=== PATIENT | female | born 1990 | race African-American/Black ===

== ENCOUNTER 2016-03-20 14:09 | Emergency (ER) | payer MEDICAID ==
[2016-03-20 14:15] VITALS: BP 136/84
--- NOTE | 2016-03-20 14:20 | ER Document Report ---
ED Medical Screen (RME) - General Stated Complaint: PASSING OUT Time seen by provider: 14:17 Mode of Arrival: Wheelchair Information source: Patient Notes: 25-year-old female who spontaneously passed out in front of her mother in the kitchen on the tile floor. She says today is Tuesday and that the last thing she remembers is coming in from work yesterday which she says is . She denies . She does not remember when her last period was no history of seizures. She is slow to respond to questions. She is complaining of a headache. TRAVEL OUTSIDE OF THE [place] IN LAST 30 DAYS: No - Related Data Allergies/Adverse Reactions: No Known Allergies Allergy (Verified 01/19/16 11:46) Past Medical History - Social History Family history: Reviewed & Not Pertinent Past Surgical History: Reports: Hx Section - Immunizations Immunizations up to date: Yes Hx Diphtheria, Pertussis, Tetanus Vaccination: Yes Physical Exam - Vital signs Vitals: Temp Pulse Resp BP Pulse Ox 98.3 F 94 16 136/84 H 99 03/20/16 14:14 03/20/16 14:14 03/20/16 14:14 03/20/16 14:14 03/20/16 14:14 Course - Vital Signs Vital signs: Temp Pulse Resp BP Pulse Ox 98.3 F 94 16 136/84 H 99 03/20/16 14:14 03/20/16 14:14 03/20/16 14:14 03/20/16 14:14 03/20/16 14:14
[2016-03-20 14:42] LABS: ABSOLUTE BASOPHILS # (AUTO) 0.1 10^3/uL (0.0-0.2); ABSOLUTE EOSINOPHILS # (AUTO) 0.1 10^3/uL (0.0-0.6); ABSOLUTE LYMPHOCYTES (AUTO) 4.4 10^3/uL (0.5-4.7); ABSOLUTE MONOCYTES (AUTO) 0.7 10^3/uL (0.1-1.4); ABSOLUTE NEUT (AUTO) 4.7 10^3/uL (1.7-8.2); BASOPHILS % (AUTO) 0.5 % (0-2); EOSINOPHILS % (AUTO) 1.2 % (0-6); HEMATOCRIT 40.6 % (36.0-47.0); HEMOGLOBIN 12.7 g/dL (12.0-15.5); HGB HCT DIFFERENCE -2.5; LYMPHOCYTES % (AUTO) 44.4 % (13-45); MEAN CORPUSCULAR HEMOGLOBIN 25.2 pg (27.0-33.4); MEAN CORPUSCULAR HGB CONC 31.3 g/dL (32.0-36.0); MEAN CORPUSCULAR VOLUME 80 fl (80-97); MONOCYTES % (AUTO) 6.6 % (3-13); RED BLOOD COUNT 5.06 10^6/uL (3.72-5.28); RED CELL DISTRIBUTION WIDTH 14.2 % (11.5-14.0); SEGMENTED NEUTROPHILS % (AUTO) 47.3 % (42-78)
[2016-03-20 15:08] LABS: ALANINE AMINOTRANSFERASE 32 U/L (9-52); ALBUMIN 4.1 g/dL (3.5-5.0); ALKALINE PHOSPHATASE 58 U/L (38-126); ANION GAP 11 (5-19); ASPARTATE AMINO TRANSFERASE 23 U/L (14-36); BILIRUBIN,TOTAL 0.4 mg/dL (0.2-1.3); BLOOD UREA NITROGEN 8 mg/dL (7-20); CALCIUM 9.7 mg/dL (8.4-10.2); CARBON DIOXIDE 27 mmol/L (22-30); CHLORIDE 103 mmol/L (98-107); CREATININE RESULT 0.61 mg/dL (0.52-1.25); GLUCOSE 86 mg/dL (75-110); POTASSIUM 4.2 mmol/L (3.6-5.0); SODIUM 141.1 mmol/L (137-145); TOTAL PROTEIN 7.1 g/dL (6.3-8.2)
[2016-03-20 15:19] LABS: APPEARANCE,URINE SLIGHTLY-CLOUDY; BILIRUBIN,URINE NEGATIVE (NEGATIVE); GLUCOSE, URINE NEGATIVE (NEGATIVE); KETONES,URINE NEGATIVE (NEGATIVE); LEUKOCYTE ESTERASE,URINE NEGATIVE (NEGATIVE); NITRITE,URINE NEGATIVE (NEGATIVE); PROTEIN,URINE NEGATIVE (NEGATIVE); URINE SPECIFIC GRAVITY 1.015; UROBILINOGEN,URINE NEGATIVE mg/dL (<2.0)
[2016-03-20 15:31] LABS: URINE BARBITURATES SCREEN NEGATIVE; URINE METHADONE SCREEN NEGATIVE; URINE PHENCYCLIDINE SCREEN NEGATIVE
--- NOTE | 2016-03-20 15:41 | ER Document Report ---
ED Syncope and Near Syncope - General Chief Complaint: Syncope Stated Complaint: PASSING OUT Time Seen by Provider: 03/20/16 14:16 Mode of Arrival: Wheelchair Information source: Patient, Relative TRAVEL OUTSIDE OF THE [place] IN LAST 30 DAYS: No - HPI Patient complains to provider of: Fainting Episode witnessed (by whom): Yes - mother and her children Single episoded occurred: 2:30 this afternoon was at the sink doing dishes when she passed out fallin Symptoms prior to episode: Headache, Other - Confusion and memory loss Position/Activity at time of episode: Standing Quality of pain: Other - Headache Context: Lost consciousness. denies: Lost pulse, Low blood sugar, , Seizure activity observed Injury location: Head Current symptoms: Headache, Lightheaded, Other - Confusion lost some memory D-stick result: 86 Similar symptoms previously: No Recently seen / treated by doctor: No - Related Data Allergies/Adverse Reactions: No Known Allergies Allergy (Verified 01/19/16 11:46) Past Medical History - General Information source: Patient - Social History Smoking Status: Never Smoker Chew tobacco use (# tins/day): No Frequency of alcohol use: None Drug Abuse: None Lives with: Family Family History: Reviewed & Not Pertinent Patient has suicidal ideation: No Patient has homicidal ideation: No - Past Medical History Cardiac Medical History: Reports: None Pulmonary Medical History: Reports: None EENT Medical History: Reports: None Neurological Medical History: Reports: None Endocrine Medical History: Reports: None Renal/ Medical History: Reports: None Malignancy Medical History: Reports: None GI Medical History: Reports: None Musculoskeltal Medical History: Reports None Skin Medical History: Reports None Psychiatric Medical History: Reports: None Traumatic Medical History: Reports: None Infectious Medical History: Reports: None Past Surgical History: Reports: Hx Section - Immunizations Immunizations up to date: Yes Hx Diphtheria, Pertussis, Tetanus Vaccination: Yes Review of Systems - Review of Systems Constitutional: No symptoms reported EENT: No symptoms reported Cardiovascular: Syncope Respiratory: No symptoms reported Gastrointestinal: No symptoms reported Genitourinary: No symptoms reported Female Genitourinary: No symptoms reported Musculoskeletal: No symptoms reported Skin: No symptoms reported Hematologic/Lymphatic: No symptoms reported Neurological/Psychological: Confusion, Headaches, Other - Loss of memory -: Yes All other systems reviewed and negative Physical Exam - Vital signs Vitals: Temp Pulse Resp BP Pulse Ox 98.3 F 94 16 136/84 H 99 03/20/16 14:14 03/20/16 14:14 03/20/16 14:14 03/20/16 14:14 03/20/16 14:14 Interpretation: Normal - General General appearance: Appears well, Alert - HEENT Head: Normocephalic, Atraumatic Eyes: Normal Pupils: PERRL Visual gillespie normal: Yes Ears: Normal External canal: Normal Tympanic membrane: Normal Sinus: Normal Nasal: Normal Mouth/Lips: Normal Mucous membranes: Normal Pharynx: Normal Neck: Normal - Respiratory Respiratory status: No respiratory distress Chest status: Nontender Breath sounds: Normal Chest palpation: Normal - Cardiovascular Rhythm: Regular Heart sounds: Normal auscultation Murmur: No - Abdominal Inspection: Normal Distension: No distension Bowel sounds: Normal Tenderness: Nontender Organomegaly: No organomegaly - Back Back: Normal, Nontender - Extremities General upper extremity: Normal inspection, Nontender, Normal color, Normal ROM , Normal temperature General lower extremity: Normal inspection, Nontender, Normal color, Normal ROM , Normal temperature, Normal weight bearing. 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 Hayden with labs and CT results. Dr. Hayden went in and examined the patient himself. He states she can go home with diagnosis of concussion and give her head injury precautions. - Vital Signs Vital signs: Temp Pulse Resp BP Pulse Ox 98.3 F 94 16 136/84 H 99 03/20/16 14:14 03/20/16 14:14 03/20/16 14:14 03/20/16 14:14 03/20/16 14:14 - Laboratory Result Diagrams: 03/20/16 14:25 03/20/16 14:25 Laboratory results interpreted by me: 03/20/16 03/20/16 14:25 15:00 MCH 25.2 L MCHC 31.3 L RDW 14.2 H Urine Blood MODERATE H - Diagnostic Test Radiology reviewed: Image reviewed, Reports reviewed Discharge - Discharge Clinical Impression: Concussion Qualifiers: Encounter type: initial encounter Loss of consciousness presence/duration: with LOC of 30 min or less Qualified Code(s): S06.0X1A - Concussion with loss of consciousness of 30 minutes or less, initial encounter Condition: Stable Disposition: HOME, SELF-CARE Instructions: Family Physicians / Practices Additional Instructions: Concussion You have suffered a concussion -- a temporary loss of certain brain functions due to a mild brain injury. The recovery is usually rapid and complete. The temporary problems occurring with a concussion can include loss of consciousness, dizziness, nausea, vomiting, and confusion. Repeat concussions can cause brain damage. In the future, avoid activities that will cause a blow to your head. Wear a helmet for sports such as snowboarding, biking, or skating. It's important that someone be with you for the first 24 hours. During this time, do not exercise or drive a vehicle. Do not take any pain medication stronger than acetaminophen unless prescribed by the physician. Any significant changes should be reported immediately to the physician. Signs of a problem may include: (1) Mental confusion (2) Incoordination or staggering (3) Repeated or forceful vomiting (4) Clear or bloody drainage from ear, mouth, or nose (5) Severe headache, not relieved by acetaminophen or prescribed pain medication (6) Failure to improve in 24 hours HEADACHE: The physician does not feel that the headache you are experiencing has a serious underlying cause. Most headaches are due to emotional stress, with resultant muscle tension (tension headache). Occasionally, headaches are secondary to changes in the blood vessels of the scalp (vascular headache and migraine headache). Sometimes, a headache is the first symptom of another developing illness, such as a viral infection. You have no evidence of stroke, bleeding, meningitis, or other serious cause of your headache. The treatment of headaches varies with the severity and cause of the pain. Not all headaches need pain shots. In fact, there is evidence that using narcotics for headaches may make them worse in the long run. The physician will determine the therapy that's in your best interest. If you develop a fever, if the headache is different from any you've previously experienced, or if the headache progressively worsens, then call your physician at once or go to the emergency room. Head Injury Precautions At this point, there is no evidence that your head injury is serious. Observation is necessary, however. Take only clear liquids for the first few hours, unless told otherwise by the doctor. If no pain medication was prescribed, you may take acetaminophen according to the directions on the bottle. Do not take any medication that may alter your level of alertness (unless you've discussed it with the doctor first) . Limit activity for the first 24 hours. Bed rest is best. During the first 24 hours, check to see approximately every two to three hours that the patient is easily arousable, responds normally, and can perform common tasks such as walking without difficulty. Contact your doctor or go to the hospital if any of the following things occur: Persistent vomiting, difficulty in arousing the patient, worsening or continued headache, or failure to improve as expected. Head injuries can cause symptoms that persist for a few days or even a few weeks. FOLLOW-UP CARE: If you have been referred to a physician for follow-up care, call the physician s office for an appointment as you were instructed or within the next two days. If you experience worsening or a significant change in your symptoms, notify the physician immediately or return to the Emergency Department at any time for re-evaluation. Forms: Elevated Blood Pressure
== END 2016-03-20 15:56 | disposition home or self-care (01) ==
LOC: ER 14:09
DX: S06.0X1A Concussion with loss of consciousness of 30 minutes or less, initial encounter (principal); R55 Syncope and collapse; R51 Headache; W18.30XA Fall on same level, unspecified, initial encounter; Y93.G1 Activity, food preparation and clean up; Y92.000 Kitchen of unspecified non-institutional (private) residence as the place of occurrence of the external cause
CPT/HCPCS: 36415; 70450; 80053; 80307; 81001; 84703; 85025; 99284

== ENCOUNTER 2016-09-06 10:30 | Emergency (ER) | payer MEDICAID ==
[2016-09-06 10:46] VITALS: BP 124/74
[2016-09-06] MEDS ORDERED: METOCLOPRAMIDE HCL ORAL SOLN 10 MG/10 ML UDCUP PO ONE (11:11)
[2016-09-06] MEDS ORDERED: MAG HYDROX/AL HYDROX/SIMETH SUSP 30 ML UDCUP PO ONE (11:11)
[2016-09-06] MEDS ORDERED: LIDOCAINE 2% VISCOUS SOLN 20 ML UDCUP PO ONE (11:11)
--- NOTE | 2016-09-06 11:17 | ER Document Report ---
ED General - General Chief Complaint: Chest Pain Stated Complaint: CHEST PAIN Time Seen by Provider: 09/06/16 10:45 Mode of Arrival: Ambulatory Information source: Patient Notes: 25-year-old female presents with complaints of gastric reflux chest pain when she swallows. pt denies any fevers or chills, admits ot burning sensation in the midsternal region and epigastric region for 4 day duration TRAVEL OUTSIDE OF THE [place] IN LAST 30 DAYS: No - HPI Onset: Last week Onset/Duration: Persistent Quality of pain: Burning Severity: Mild Pain Level: 1 Associated symptoms: Chest pain, Nausea, Vomiting Exacerbated by: Denies Relieved by: Denies Similar symptoms previously: Yes Recently seen / treated by doctor: No - Related Data Allergies/Adverse Reactions: No Known Allergies Allergy (Verified 09/06/16 10:36) Past Medical History - Social History Smoking Status: Current Every Day Smoker Cigarette use (# per day): Yes Chew tobacco use (# tins/day): No Smoking Education Provided: No Frequency of alcohol use: None Drug Abuse: None Family History: Reviewed & Not Pertinent Patient has suicidal ideation: No Patient has homicidal ideation: No Renal/ Medical History: Denies: Hx Peritoneal Dialysis Past Surgical History: Reports: Hx Section - 2 - Immunizations Immunizations up to date: Yes Hx Diphtheria, Pertussis, Tetanus Vaccination: Yes Review of Systems - Review of Systems Notes: REVIEW OF SYSTEMS: CONSTITUTIONAL : Denies fever, chills, or sweats. Denies recent illness. EENT: Denies eye, ear, throat, or mouth pain or symptoms. Denies nasal or sinus congestion or discharge. Denies throat, tongue, or mouth swelling or difficulty swallowing. CARDIOVASCULAR: Denies chest pain. Denies palpitations or racing or irregular heart beat. Denies ankle edema. RESPIRATORY: Denies cough, cold, or chest congestion. Denies shortness of breath, difficulty breathing, or wheezing. GASTROINTESTINAL: Heartburn nausea vomiting GENITOURINARY: Denies difficulty urinating, painful urination, burning, frequency, blood in urine, or discharge. FEMALE GENITOURINARY: Denies vaginal bleeding, heavy or abnormal periods, irregular periods. Denies vaginal discharge or odor. MUSCULOSKELETAL: Denies back or neck pain or stiffness. Denies joint pain or swelling. SKIN: Denies rash, lesions or sores. HEMATOLOGIC : Denies easy bruising or bleeding. LYMPHATIC: Denies swollen, enlarged glands. NEUROLOGICAL: Denies confusion or altered mental status. Denies passing out or loss of consciousness. Denies dizziness or lightheadedness. Denies headache. Denies weakness or paralysis or loss of use of either side. Denies problems with gait or speech. Denies sensory loss, numbness, or tingling. Denies seizures. PSYCHIATRIC: Denies anxiety or stress. Denies depression, suicidal ideation, or homicidal ideation. ALL OTHER SYSTEMS REVIEWED AND NEGATIVE. PHYSICAL EXAMINATION: GENERAL: Well-appearing, well-nourished and in no acute distress. HEAD: Atraumatic, normocephalic. EYES: Pupils equal round and reactive to light, extraocular movements intact, conjunctiva are normal. ENT: Nares patent, oropharynx clear without exudates. Moist mucous membranes. NECK: Normal range of motion, supple without lymphadenopathy LUNGS: Breath sounds clear to auscultation bilaterally and equal. No wheezes rales or rhonchi. HEART: Regular rate and rhythm without murmurs ABDOMEN: Soft, and epigastric region on palpation Female : deferred Musculoskeletal: Normal range of motion, no pitting or edema. No cyanosis. NEUROLOGICAL: Cranial nerves grossly intact. Normal speech, normal gait. Normal sensory, motor exams PSYCH: Normal mood, normal affect. SKIN: Warm, Dry, normal turgor, no rashes or lesions noted. Dictation was performed using [employer] voice recognition software Physical Exam - Vital signs Vitals: Temp Pulse Resp BP Pulse Ox 98.2 F 72 18 124/74 100 09/06/16 10:45 09/06/16 10:45 09/06/16 10:45 09/06/16 10:45 09/06/16 10:45 Course - Re-evaluation Re-evalutation: 09/06/16 11:14 Physical examination notes tenderness in the epigastric region, patient denies any fevers or chills, therefore I do not expect any-issues secondary to cardiac or intra-abdominal Patient given GI cocktail with improvement of symptoms, will be discharged home with PPI and follow-up with her primary care physician After performing a Medical Screening Examination, I estimate there is LOW risk for ACUTE APPENDICITIS, BOWEL OBSTRUCTION, ACUTE CHOLECYSTITIS, PERFORATED DIVERTICULITIS, INCARCERATED HERNIA, PANCREATITIS, PELVIC INFLAMMATORY DISEASE, PERFORATED ULCER, ECTOPIC , or TUBO-OVARIAN ABSCESS, thus I consider the discharge disposition reasonable. Also, there is no evidence or peritonitis , sepsis, or toxicity. I have reevaluated this patient multiple times and no significant life threatening changes are noted. The patient and I have discussed the diagnosis and risks, and we agree with discharging home with close follow-up with the understanding that symptoms and presentations can change. We also discussed returning to the Emergency Department immediately if new or worsening symptoms occur. We have discussed the symptoms which are most concerning (e.g., bloody stool, fever, changing or worsening pain, vomiting) that necessitate immediate return. - Vital Signs Vital signs: Temp Pulse Resp BP Pulse Ox 98.2 F 72 18 124/74 100 09/06/16 10:45 09/06/16 10:45 09/06/16 10:45 09/06/16 10:45 09/06/16 10:45 - EKG Interpretation by Me EKG shows normal: Sinus rhythm, [place], Intervals, QRS Complexes Discharge - Discharge Clinical Impression: Epigastric pain GERD (gastroesophageal reflux disease) Qualifiers: Esophagitis presence: with esophagitis Qualified Code(s): K21.0 - Gastro- esophageal reflux disease with esophagitis Condition: Stable Disposition: HOME, SELF-CARE Instructions: Abdominal Pain ([facility]) Additional Instructions: Follow up with your physician tomorrow for further care or return to the ED IMMEDIATELY if symptoms worsen or new concerns occur. If you cannot afford to follow up with your primary care physician a list of low cost clinics have been provided at the end of your discharge papers as well. Prescriptions: Famotidine [Pepcid 20 mg Tablet] 20 mg PO DAILY #30 tablet
--- NOTE | 2016-09-06 12:55 | EKG REPORT ---
SEVERITY:- NORMAL ECG - SINUS RHYTHM : Confirmed by: Eliceo De Santiago MD 06-Sep-2016 12:55:09
== END 2016-09-06 11:37 | disposition home or self-care (01) ==
LOC: ER 10:30
DX: K21.0 Gastro-esophageal reflux disease with esophagitis (principal); R10.13 Epigastric pain; R07.9 Chest pain, unspecified; R11.2 Nausea with vomiting, unspecified; F17.210 Nicotine dependence, cigarettes, uncomplicated
CPT/HCPCS: 93005; 99284; 93010; J3490

== ENCOUNTER 2017-03-09 08:34 | Emergency (ER) | payer SELFPAY ==
[2017-03-09 08:39] VITALS: BP 120/75
--- NOTE | 2017-03-09 08:49 | ER Document Report ---
ED Neck/Back Problem - General Chief Complaint: Neck Pain >24hrs old Stated Complaint: NECK PAIN Time Seen by Provider: 03/09/17 08:47 Notes: The patient is a 26-year-old female who presents with 3 days of right-sided neck pain to the back of her head that is worse with movement. She tried Motrin yesterday without much relief her symptoms. She denies numbness, tingling, headache, fevers, rash, injury or blurry vision. TRAVEL OUTSIDE OF THE [place] IN LAST 30 DAYS: No - Related Data Allergies/Adverse Reactions: No Known Allergies Allergy (Verified 03/09/17 08:34) Past Medical History - General Information source: Patient - Social History Smoking Status: Unknown if Ever Smoked Family History: Reviewed & Not Pertinent Renal/ Medical History: Denies: Hx Peritoneal Dialysis Past Surgical History: Reports: Hx Section - 2 - Immunizations Immunizations up to date: Yes Hx Diphtheria, Pertussis, Tetanus Vaccination: Yes Review of Systems - Review of Systems Notes: REVIEW OF SYSTEMS: CONSTITUTIONAL: -fevers, -chills EENT: -eye pain, -difficulty swallowing, -nasal congestion CARDIOVASCULAR: -chest pain, -syncope. RESPIRATORY: -cough, -SOB GASTROINTESTINAL: -abdominal pain, -nausea, -vomiting, -diarrhea GENITOURINARY: -dysuria, -hematuria MUSCULOSKELETAL: -back pain, +neck pain SKIN: -rash or skin lesions. HEMATOLOGIC: -easy bruising or bleeding. LYMPHATIC: -swollen, enlarged glands. NEUROLOGICAL: -altered mental status or loss of consciousness, -headache, - neurologic symptoms PSYCHIATRIC: -anxiety, -depression. ALL OTHER SYSTEMS REVIEWED AND NEGATIVE. Physical Exam - Vital signs Vitals: Temp Pulse Resp BP Pulse Ox 98.5 F 89 16 120/75 100 03/09/17 08:38 03/09/17 08:38 03/09/17 08:38 03/09/17 08:38 03/09/17 08:38 - Notes Notes: PHYSICAL EXAMINATION: GENERAL: Well-appearing, well-nourished and in no acute distress. HEAD: Atraumatic, normocephalic. EYES: Pupils equal round and reactive to light, extraocular movements intact, sclera anicteric, conjunctiva are normal. ENT: nares patent, oropharynx clear without exudates. Moist mucous membranes. NECK: Tenderness over right sternocleidomastoid. No midline tenderness. LUNGS: Breath sounds clear to auscultation bilaterally and equal. No wheezes rales or rhonchi. HEART: Regular rate and rhythm without murmurs ABDOMEN: Soft, nontender, normoactive bowel sounds. No guarding, no rebound. No masses appreciated. EXTREMITIES: Normal range of motion, no pitting or edema. No cyanosis. NEUROLOGICAL: Cranial nerves grossly intact. Normal speech, normal gait. Normal sensory and motor exams. PSYCH: Normal mood, normal affect. SKIN: Warm, Dry, normal turgor, no rashes or lesions noted. Course - Re-evaluation Re-evalutation: Patient's with symptoms consistent with right sternocleidomastoid neck strain. Instructed her about using anti-inflammatories, Robaxin for muscle spasm and Lidoderm patches for any pain with follow-up with her primary care physician. - Vital Signs Vital signs: Temp Pulse Resp BP Pulse Ox 98.5 F 89 16 120/75 100 03/09/17 08:38 03/09/17 08:38 03/09/17 08:38 03/09/17 08:38 03/09/17 08:38 Discharge - Discharge Clinical Impression: Neck strain Qualifiers: Encounter type: initial encounter Qualified Code(s): S16.1XXA - Strain of muscle, fascia and tendon at neck level, initial encounter Condition: Stable Disposition: HOME, SELF-CARE Additional Instructions: Neck Injury (Cervical Strain) You have a neck strain. This is an injury to the muscles and ligaments in the neck. There is no evidence of a fracture of the neck bones. Also, no injury to the spinal cord or nerve roots was detected. Usually, stiffness and pain INCREASE for the first 24-48 hours after the injury. The pain will gradually resolve and the neck will become more mobile. Most patients are back at work or school within a few days. Typically, complete healing takes about two or three weeks. The usual initial treatment is rest and cold packs. A neck collar may be placed to keep the muscles of the neck at rest. Antiinflammatory and muscle relaxing medication are often used to reduce the spasm and irritation. You should call the doctor, or go to the hospital, if you develop numbness or weakness in any extremity, problems with your bladder or bowel, or pain radiating down the arms. Prescriptions: Lidocaine [Lidoderm 5% (700 mg) Transdermal Patch] 1 patch TP DAILY #10 adh..patch Methocarbamol [Robaxin 500 mg Tablet] 500 mg PO Q4H PRN #15 tablet PRN Reason: Forms: Return to Work Referrals: [facility] [Outside] - Follow up as needed
[2017-03-09] MEDS ORDERED: LIDOCAINE 5% (700 MG) TRANSDERMAL ADH..PATCH TP ONE (08:55)
[2017-03-09] MEDS ORDERED: METHOCARBAMOL 750 MG TABLET PO ONE (08:55)
[2017-03-09] MEDS ORDERED: NAPROXEN 250 MG TABLET PO ONE (08:55)
== END 2017-03-09 09:07 | disposition home or self-care (01) ==
LOC: ER 08:34
DX: S16.1XXA Strain of muscle, fascia and tendon at neck level, initial encounter (principal); X58.XXXA Exposure to other specified factors, initial encounter; M54.2 Cervicalgia
CPT/HCPCS: 99283; J3490

== ENCOUNTER 2019-03-06 09:21 | Emergency (ER) | payer MEDICAID ==
[2019-03-06 09:28] VITALS: BP 148/81
[2019-03-06] MEDS ORDERED: IBUPROFEN 800 MG TABLET PO ONE (09:58)
--- NOTE | 2019-03-06 10:01 | ER Document Report ---
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 Reports she just woke up with the pain. Denies trauma. Denies fever vomiting diarrhea. Denies pain with void. Denies history of back pain. Denies kidney stones. She reports her tried to massage the area and it hurt more. Associated Symptoms: None Exacerbated by: Movement Relieved by: Denies Similar symptoms previously: No Recently seen / treated by doctor: No - REPRODUCTIVE LMP: 02/27/19 Reproductive: DENIES: : Past Medical History - General Information source: Patient Last Menstrual Period: March 04 - Social History Smoking Status: Current Every Day Smoker Chew tobacco use (# tins/day): No Frequency of alcohol use: Occasional Drug Abuse: None Occupation: [employer] Lives with: Family Family History: Reviewed & Not Pertinent Patient has suicidal ideation: No Patient has homicidal ideation: No - Medical History Medical History: Negative Renal/ Medical History: Denies: Hx Peritoneal Dialysis Past Surgical History: Reports: Hx Section - 2 - Immunizations Immunizations up to date: Yes Hx Diphtheria, Pertussis, Tetanus Vaccination: Yes Vertical Provider Document - CONSTITUTIONAL Agree With Documented VS: Yes Exam Limitations: No Limitations General Appearance: WD/WN, No Apparent Distress - INFECTION CONTROL TRAVEL OUTSIDE OF THE [place] IN LAST 30 DAYS: No - HEENT HEENT: Atraumatic, Normal ENT Exam, Normocephalic. negative: Conjuctival Injection, Pharyngeal Erythema, Tympanic Membrane Red - NECK Neck: Normal Inspection, Supple. negative: Lymphadenopathy-Left, Lymphadenopathy-Right - RESPIRATORY Respiratory: Breath Sounds Normal, No Respiratory Distress - CARDIOVASCULAR Cardiovascular: Regular Rate, Regular Rhythm - GI/ABDOMEN Gastrointestinal: Abdomen Soft, Abdomen Non-Tender - BACK Back: Normal Inspection - No obvious deformity. Patient complains of left-sided mid thoracic paraspinal tenderness. No erythema no swelling no warmth noted. Patient has good distal movement and sensation - MUSCULOSKELETAL/EXTREMETIES Musculoskeletal/Extremeties: MAEW, FROM, Non-Tender - NEURO Level of Consciousness: Awake, Alert, Appropriate Motor/Sensory: No Motor Deficit - DERM Integumentary: Warm, Dry Course - Re-evaluation Re-evalutation: 03/06/19 10:12 28-year-old female presents emergency department with complaint and left-sided paraspinal tenderness for the past 3 to 4 days. Reports she just woke up and her back was hurting. She also reports she is worked 12 days in a row at [employer]. Denies trauma while working. Denies injury. Patient reports she too k ibuprofen without relief of pain. She will be prescribed Flexeril. She was instructed on Flexeril. Instructed to follow-up with her primary care provider [facility] within 1 week for recheck. She verbalized understanding to all instructions. - Vital Signs Vital signs: Temp Pulse Resp BP Pulse Ox 98.4 F 99 16 148/81 H 100 03/06/19 09:26 03/06/19 09:26 03/06/19 09:26 03/06/19 09:26 03/06/19 09:26 Discharge - Discharge Clinical Impression: Back pain Qualifiers: Back pain location: thoracic back pain Condition: Stable Disposition: HOME, SELF-CARE Instructions: Use of Hmjq-[id number]-Fomwake Ibuprofen ([facility]), Muscle Relaxers ([facility]), Muscle Strain ([facility]) Additional Instructions: *You have been evaluated for back pain *Take medication as prescribed *Rest/Ice packs, massage as indicated, Ibuprofen as indicated *Follow up with your primary care provider within one week *Return to ED for worsening condition, changes, needs Prescriptions: Cyclobenzaprine HCl [Flexeril 5 mg Tablet] 5 mg PO TID #15 tablet Forms: Elevated Blood Pressure, Return to Work Referrals: LAURENCE PAULA MD [ACTIVE STAFF] - Follow up as needed [facility] [Provider Group] - Follow up in 1 week
== END 2019-03-06 10:06 | disposition home or self-care (01) ==
LOC: ER 09:21
DX: M54.6 Pain in thoracic spine (principal); F17.200 Nicotine dependence, unspecified, uncomplicated
CPT/HCPCS: 99283; J3490

== ENCOUNTER 2019-11-06 06:14 | Emergency (ER) | payer MEDICAID ==
[2019-11-06 06:25] VITALS: BP 120/73
--- NOTE | 2019-11-06 06:41 | ER Document Report ---
ED Cardiac - General Chief Complaint: Chest Pain Stated Complaint: CHEST PAIN Time Seen by Provider: 11/06/19 06:40 Primary Care Provider: STEPHANIE BACA DPM [Primary Care Provider] - Follow up as needed Notes: HPI: 28-year-old female who presents today with the onset she states around 2 weeks of some intermittent substernal nonradiating chest discomfort. No cough, fevers, vomiting. She states it hurts mostly when she twists at the waist or moves bilateral arms. History of costochondritis. Patient denies any calf pain, leg swelling, shortness of breath, recent trips or travel. She does smoke cigarettes. She denies family history of early heart attacks or strokes. She states she is not on control medications. ROS: See HPI All other review of systems reviewed and otherwise negative Reviewed vital signs and nursing note as charted by RN. PHYSICAL EXAM: CONSTITUTIONAL: Alert and oriented and responds appropriately to questions. Well-appearing; well-nourished HEAD: Normocephalic; atraumatic NECK: Supple without meningismus; non-tender; no cervical lymphadenopathy, no masses CARD: Regular rate and rhythm; tenderness to palpation of the right anterior chest wall with no obvious swelling, erythema, or crepitus no murmurs; symmetric distal pulses RESP: Normal chest excursion without splinting or tachypnea; breath sounds clear and equal bilaterally; no wheezes, no rhonchi, no rales ABD/GI: Normal bowel sounds; non-distended; soft, non-tender; no palpable organomegaly or masses BACK: The back appears normal and is non-tender to palpation EXT: Normal ROM in all joints; non-tender to palpation; no edema SKIN: No acute lesions noted NEURO: CN 2-12 intact; 5/5 bilateral upper and lower extremity strength with sensation intact to light touch PSYCH: The patient's mood and manner are appropriate. Grooming and personal hygiene are appropriate. TRAVEL OUTSIDE OF THE U.S. IN LAST 30 DAYS: No - Related Data Allergies/Adverse Reactions: No Known Allergies Allergy (Verified 03/06/19 09:49) Past Medical History - Social History Smoking Status: Current Every Day Smoker Family History: Reviewed & Not Pertinent Renal/ Medical History: Denies: Hx Peritoneal Dialysis Past Surgical History: Reports: Hx Section - 2 - Immunizations Immunizations up to date: Yes Hx Diphtheria, Pertussis, Tetanus Vaccination: Yes Physical Exam - Vital signs Vitals: Temp Pulse Resp BP Pulse Ox 98.6 F 77 16 120/73 100 11/06/19 06:23 11/06/19 06:23 11/06/19 06:23 11/06/19 06:23 11/06/19 06:23 Course - Re-evaluation Re-evalutation: Given the above history and physical examination in this young healthy female with vital signs as recorded, with tenderness to palpation of the chest wall, with no risk factors for PE or dissection, I do believe that ACS, PE, and dissection to be extremely unlikely. I will obtain an EKG as well as an x-ray of the chest to evaluate for the possibility of cardiac dysrhythmia, obvious EKG abnormality, or pneumothorax or pneumonia. 11/06/19 06:41 EKG shows a heart rate is 78, normal sinus rhythm, normal axis, no ST elevation or depression. 11/06/19 07:08 X-ray of the chest shows no obvious infiltrates, normal heart size, no obvious effusions with a normal mediastinum. Vital signs are stable. Patient will be discharged home with strict return precautions and instructions regarding ibuprofen. - Vital Signs Vital signs: Temp Pulse Resp BP Pulse Ox 98.6 F 77 16 120/73 100 11/06/19 06:23 11/06/19 06:23 11/06/19 06:23 11/06/19 06:23 11/06/19 06:23 Discharge - Discharge Clinical Impression: Chest wall pain Condition: Good Disposition: HOME, SELF-CARE Additional Instructions: Come back immediately for any increased pain, change in location or quality of pain, fevers or vomiting, calf pain or leg swelling, or any other acute problems. Please take 400 mg of ibuprofen every 6 hours for the next 5 days to help treat the pain. Please follow-up with your primary care physician for reassessment. Referrals: STEPHANIE BACA DPM [Primary Care Provider] - Follow up as needed
--- NOTE | 2019-11-06 07:25 | RADIOLOGY REPORT (SQ) ---
EXAM DESCRIPTION: XR CHEST 1 VIEW COMPLETED DATE/TME: 11/06/2019 06:41 CLINICAL HISTORY: 28 years, Female, waiting; chest pain COMPARISON: 08/30/2013 NUMBER OF VIEWS: One TECHNIQUE: AP view of the chest LIMITATIONS: None. FINDINGS: The lungs are clear. The heart is normal in size. There is no pneumothorax or pleural effusion. No intraperitoneal free air. Bones are unremarkable. IMPRESSION: No acute cardiopulmonary abnormality copyright 2010 [employer]- All Rights Reserved
--- NOTE | 2019-11-06 08:45 | EKG REPORT ---
SEVERITY:- NORMAL ECG - SINUS RHYTHM : Confirmed by: Daniel Donovan MD 06-Nov-2019 08:43:55
== END 2019-11-06 07:16 | disposition home or self-care (01) ==
LOC: ER 06:14
DX: R07.89 Other chest pain (principal); F17.210 Nicotine dependence, cigarettes, uncomplicated
CPT/HCPCS: 71045; 93005; 93010; 99284

== ENCOUNTER 2019-12-10 08:16 | Emergency (ER) | payer MEDICAID ==
--- NOTE | 2019-12-10 08:39 | ER Document Report ---
ED General - General Chief Complaint: Lower Abdominal Pain Stated Complaint: PAIN AT OLD INCISION SITE Time Seen by Provider: 12/10/19 08:38 Primary Care Provider: [facility] [Provider Group] - Follow up in 3-5 days TRAVEL OUTSIDE OF THE [place]. IN LAST 30 DAYS: No - HPI Notes: 29-year-old female to the emergency department with complaints of lower pelvic abdominal pain that began about 2 weeks ago and persist. She states that every time she bends to lift or move she has pain. She states that sharp and tearing in nature when she is doing movement. She does have pain when she is at rest as well. Laying flat seems to make it worse. She states it is in the area where she had a . She has not noticed any bulging in her abdomen. She denies any fevers or chills. She denies any nausea or vomiting. She denies any diarrhea. She states her last bowel movement was yesterday. She states she has been eating ice a lot and she finds that the only thing that makes her pain feel better. She denies any chest pain, shortness of breath, nausea vomiting. She denies any history of anemia. She states her last menstrual period was December 01 through December 05. - Related Data Allergies/Adverse Reactions: No Known Allergies Allergy (Verified 12/10/19 08:28) Past Medical History - General Information source: Patient - Social History Smoking Status: Never Smoker Chew tobacco use (# tins/day): No Frequency of alcohol use: Occasional Drug Abuse: None Family History: Reviewed & Not Pertinent Patient has homicidal ideation: No Renal/ Medical History: Denies: Hx Peritoneal Dialysis Past Surgical History: Reports: Hx Section - 2 - Immunizations Immunizations up to date: Yes Hx Diphtheria, Pertussis, Tetanus Vaccination: Yes Review of Systems - Review of Systems Constitutional: denies: Chills, Fever EENT: No symptoms reported Cardiovascular: denies: Chest pain, Palpitations, Syncope, Dizziness, Lightheaded Respiratory: denies: Cough, Hurts to breathe, Short of breath Gastrointestinal: Abdominal pain. denies: Diarrhea, Nausea, Vomiting, Constipation Genitourinary: denies: Burning, Dysuria, Frequency, Flank pain Female Genitourinary: Last menstrual period - December 01- Musculoskeletal: No symptoms reported Skin: No symptoms reported Hematologic/Lymphatic: Other - Eating ice Neurological/Psychological: No symptoms reported -: Yes All other systems reviewed and negative Physical Exam - Vital signs Vitals: Temp Pulse Resp BP Pulse Ox 98.4 F 89 20 124/69 100 12/10/19 08:21 12/10/19 08:21 12/10/19 08:21 12/10/19 08:21 12/10/19 08:21 Interpretation: Normal - General General appearance: Appears well, Alert In distress: None - HEENT Head: Normocephalic, Atraumatic Eyes: Normal Pupils: PERRL - Respiratory Respiratory status: No respiratory distress Chest status: Nontender Breath sounds: Normal. No: Rales, Rhonchi, Wheezing Chest palpation: Normal - Cardiovascular Rhythm: Regular Heart sounds: Normal auscultation Murmur: No - Abdominal Inspection: Obese Distension: No distension Bowel sounds: Normal Tenderness: Tender - There is tenderness to palpation over the lower abdomen. Noted scar. Valsalva does not elicit any evidence for hernia. Organomegaly: No organomegaly - Back Back: Normal, Nontender. 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 Anemia. CT is reassuring for no acute process. This could be more musculoskeletal in nature. Hemoglobin is 8.2. We will start her on iron. She is to follow-up without fail with primary care. She is to return if any worsening symptoms. Patient agrees with the plan. - Vital Signs Vital signs: Temp Pulse Resp BP Pulse Ox 98.1 F 72 16 116/70 98 12/10/19 08:28 12/10/19 12:56 12/10/19 12:56 12/10/19 12:56 12/10/19 12:56 - Laboratory Result Diagrams: 12/10/19 08:43 12/10/19 08:43 Laboratory results interpreted by me: 12/10/19 12/10/19 08:43 08:43 Hgb 8.2 L Hct 26.5 L MCV 62 L MCH 19.1 L MCHC 31.1 L RDW 19.5 H Plt Count 590 H Urine Protein 30 H Urine Blood MODERATE H Urine Urobilinogen 2.0 H - Diagnostic Test Radiology reviewed: Image reviewed, Reports reviewed Discharge - Discharge Clinical Impression: Lower abdominal pain Anemia Qualifiers: Anemia type: unspecified type Qualified Code(s): D64.9 - Anemia, unspecified Condition: Stable Disposition: HOME, SELF-CARE Instructions: Abdominal Pain ([facility]), Anemia ([facility]) Additional Instructions: Take medicines as prescribed. Return if worsening symptoms. Push fluids.. Follow-up with [facility] in 1 week. Prescriptions: Ferrous Sulfate [Feosol 325 mg Tablet] 325 mg PO DAILY #30 tab Polyethylene Glycol 3350 [Miralax Powder 17 gm/Packet] 1 packet PO DAILY #1 pkg Naproxen [Naprosyn 250 mg Tablet] 250 mg PO DAILY PRN #30 tablet PRN Reason: Forms: Return to Work Referrals: [facility] [Provider Group] - Follow up in 3-5 days
[2019-12-10] MEDS ORDERED: ONDANSETRON HCL INJ/PF 4 MG/2 ML SDV IV ONE (09:08)
[2019-12-10] MEDS ORDERED: KETOROLAC TROMETHAMINE INJ/PF 30 MG/1 ML SDV IV ONE (09:08)
[2019-12-10] MEDS ORDERED: NORMAL SALINE 1000 ML 1,000 ML IV ONE (09:08)
[2019-12-10 09:14] LABS: HEMATOCRIT 26.5 % (36.0-47.0); HEMOGLOBIN 8.2 g/dL (12.0-15.5); MEAN CORPUSCULAR HEMOGLOBIN 19.1 pg (27.0-33.4); MEAN CORPUSCULAR HGB CONC 31.1 g/dL (32.0-36.0); PLATELET COUNT 590 10^3/uL (150-450); RED BLOOD COUNT 4.31 10^6/uL (3.72-5.28); RED CELL DISTRIBUTION WIDTH 19.5 % (11.5-14.0); WHITE BLOOD COUNT 6.5 10^3/uL (4.0-10.5)
[2019-12-10 09:17] LABS: APPEARANCE,URINE CLEAR; BILIRUBIN,URINE NEGATIVE (NEGATIVE); COLOR,URINE YELLOW; GLUCOSE, URINE NEGATIVE (NEGATIVE); KETONES,URINE NEGATIVE (NEGATIVE); LEUKOCYTE ESTERASE,URINE NEGATIVE (NEGATIVE); NITRITE,URINE NEGATIVE (NEGATIVE); PROTEIN,URINE 30 mg/dL (NEGATIVE); URINE SPECIFIC GRAVITY 1.027
[2019-12-10 09:23] LABS: MEAN CORPUSCULAR VOLUME 62 fl (80-97)
[2019-12-10 09:30] LABS: ALKALINE PHOSPHATASE 54 U/L (38-126); ANION GAP 10 (5-19); ASPARTATE AMINO TRANSFERASE 21 U/L (14-36); BILIRUBIN,DIRECT 0.2 mg/dL (0.0-0.4); BILIRUBIN,TOTAL 0.4 mg/dL (0.2-1.3); BLOOD UREA NITROGEN 8 mg/dL (7-20); CALCIUM 8.9 mg/dL (8.4-10.2); CARBON DIOXIDE 23 mmol/L (22-30); CHLORIDE 106 mmol/L (98-107); GLUCOSE 89 mg/dL (75-110); POTASSIUM 3.9 mmol/L (3.6-5.0); TOTAL PROTEIN 6.9 g/dL (6.3-8.2)
[2019-12-10 09:43] LABS: ABSOLUTE LYMPHOCYTES# (MANUAL) 2.5 10^3/uL (0.5-4.7); ABSOLUTE MONOCYTES # (MANUAL) 0.4 10^3/uL (0.1-1.4); BASOPHILS % (MANUAL) 1 % (0-2); EOSINOPHILS % (MANUAL) 1 % (0-6); LYMPHOCYTES % (MANUAL) 39 % (13-45); MONOCYTES % (MANUAL) 6 % (3-13); SEGMENTED NEUTROPHILS % (MAN) 53 % (42-78); TOTAL CELLS COUNTED 100
[2019-12-10 09:46] LABS: ANISOCYTOSIS 2+; HYPOCHROMASIA 2+; POIKILOCYTOSIS 2+; POLYCHROMASIA SLIGHT
[2019-12-10 09:47] LABS: OVALOCYTES 2+; PLATELET COMMENT INCREASED; SCHISTOCYTES SLIGHT; TEAR DROP CELLS 1+
--- NOTE | 2019-12-10 11:15 | RADIOLOGY REPORT (SQ) ---
EXAM DESCRIPTION: CT ABD/PELVIS WITH IV ONLY IMAGES COMPLETED DATE/TIME: 12/10/2019 11:04 am REASON FOR STUDY: lower abd pain COMPARISON: None. TECHNIQUE: CT scan of the abdomen and pelvis performed using helical scanning technique with dynamic intravenous contrast injection. No oral contrast. Images reviewed with lung, soft tissue, and bone windows. Reconstructed coronal and sagittal MPR images reviewed. Delayed images for evaluation of the urinary system also acquired. All images stored on PACS. All CT scanners at this facility use dose modulation, iterative reconstruction, and/or weight based d osing when appropriate to reduce radiation dose to as low as reasonably achievable (ALARA). [facility]: Dose Right [facility]: CareDose [facility]: Dose Right [facility]: Teradose 4D [facility]: PIERIS [employer] CONTRAST TYPE AND DOSE: contrast/concentration: Isovue 350.00 mmol/ml; Total Contrast Delivered: 100 .0 ml; Total Saline Delivered: 72.0 ml RENAL FUNCTION: GFR > 60. RADIATION DOSE: CT Rad equipment meets quality standard of care and radiation dose reduction techniq ues were employed. CTDIvol: 15.7 - 19.6 mGy. DLP: 1930 mGy-cm.. LIMITATIONS: None. FINDINGS: LOWER CHEST: No significant findings. No nodules or infiltrates. LIVER: Normal size. Mild fatty change. No masses. No dilated ducts. SPLEEN: Normal size. No focal lesions. PANCREAS: No masses. No significant calcifications. No adjacent inflammation or peripancreatic fluid collections. Pancreatic duct not dilated. GALLBLADDER: No identified stones by CT criteria. No inflammatory changes to suggest cholecystitis. ADRENAL GLANDS: No significant masses or asymmetry. RIGHT KIDNEY AND URETER: No solid masses. No significant calcifications. No hydronephrosis or hyd roureter. LEFT KIDNEY AND URETER: No solid masses. No significant calcifications. No hydronephrosis or hydr oureter. AORTA AND VESSELS: No aneurysm. No dissection. Renal arteries, SMA, celiac without stenosis. RETROPERITONEUM: No retroperitoneal adenopathy, hemorrhage or masses. BOWEL AND PERITONEAL CAVITY: No masses or inflammatory changes. No free fluid or peritoneal masses. APPENDIX: Normal. PELVIS: No mass. No free fluid. Normal bladder. ABDOMINAL WALL: Small fat containing umbilical hernia. BONES: No significant or acute findings. OTHER: No other significant finding. IMPRESSION: No acute findings. TECHNICAL DOCUMENTATION: JOB ID: [id number] Quality ID # [id number]: Final reports with documentation of one or more dose reduction techniques (e.g., Au tomated exposure control, adjustment of the mA and/or kV according to patient size, use of iterative reconstruction technique) 2010 [employer]- All Rights Reserved Reading location - IP[facility]workstation name: [email or web address]
[2019-12-10 12:56] VITALS: BP 116/70
== END 2019-12-10 12:57 | disposition home or self-care (01) ==
LOC: ER 08:16
DX: R10.30 Lower abdominal pain, unspecified (principal); R10.2 Pelvic and perineal pain; D64.9 Anemia, unspecified; E66.9 Obesity, unspecified
CPT/HCPCS: 99285; 96361; 96374; 96375; 36415; 83690; 85025; 81025; 80053; 81001; 74177; J1885; J2405; J7030

== ENCOUNTER 2020-01-20 09:01 | Emergency (ER) | payer MEDICAID ==
[2020-01-20] MEDS ORDERED: IBUPROFEN 800 MG TABLET PO ONE (10:39)
[2020-01-20] MEDS ORDERED: PSEUDOEPHEDRINE HCL 30 MG TABLET PO ONE (10:39)
--- NOTE | 2020-01-20 11:52 | ER Document Report ---
HPI - HPI Patient complains to provider of: Sore throat, congestion Time Seen by Provider: 01/20/20 10:01 Onset: Other - 2 weeks Onset/Duration: Persistent Quality of pain: Achy Pain Level: 2 Context: Patient presents complaining of cough congestion for the past 2 weeks. Patient states she had some sore throat symptoms. Patient denies any fever, nausea or vomiting. Patient has recently been tested for Covid although is awaiting results at this time. Associated Symptoms: Nonproductive cough, Rhinnorhea, Sore throat. denies: Productive cough, Fever, Nausea, Vomiting Exacerbated by: Denies Relieved by: Denies Similar symptoms previously: Yes Recently seen / treated by doctor: Yes - ROS ROS below otherwise negative: Yes Systems Reviewed and Negative: Yes All other systems reviewed and negative - CONSTITUTIONAL Constitutional: DENIES: Fever - EENT EENT: REPORTS: Sore Throat, Congestion - NEURO Neurology: REPORTS: Headache - RESPIRATORY Respiratory: REPORTS: Coughing - GASTROINTESTINAL Gastrointestinal: DENIES: Abdominal Pain, Patient vomiting, Diarrhea - REPRODUCTIVE Reproductive: DENIES: : - DERM Skin Color: Normal Skin Problems: None Past Medical History - General Information source: Patient - Social History Smoking Status: Never Smoker Chew tobacco use (# tins/day): No Frequency of alcohol use: None Drug Abuse: None 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 IN LAST 30 DAYS: No - HEENT HEENT: Atraumatic, Normocephalic, Pharyngeal Tenderness, Pharyngeal Erythema. negative: Pharyngeal Exudate, Tympanic Membrane Red, Tympanic Membrane Bulging Notes: Serous effusion bilaterally, clear rhinorrhea - NECK Neck: Normal Inspection, Supple. negative: Lymphadenopathy-Left, Lymphadenopathy-Right - RESPIRATORY Respiratory: Breath Sounds Normal, No Respiratory Distress - CARDIOVASCULAR Cardiovascular: Regular Rate, Regular Rhythm, No Murmur - BACK Back: Normal Inspection - MUSCULOSKELETAL/EXTREMETIES Musculoskeletal/Extremeties: MALONNY HOLDEN - NEURO Level of Consciousness: Awake, Alert, Appropriate Motor/Sensory: No Motor Deficit - DERM Integumentary: Warm, Dry, No Rash Course - Re-evaluation Re-evalutation: 01/20/20 11:50 Patient with negative strep test, throat culture is pending at this time. No concern for any TIP TESTER. Patient with serous effusion bilaterally and clear rhinorrhea, no concern for sinusitis. Good return precautions discussed with patient. - Vital Signs Vital signs: Temp Pulse Resp BP Pulse Ox 98.3 F 96 112/62 100 01/20/20 09:31 01/20/20 09:31 01/20/20 09:31 01/20/20 09:31 - Laboratory Laboratory results interpreted by me: 01/20/20 16:52 Labs- All tests 24 hr 01/20/20 10:26 Group A Strep Rapid NEGATIVE Discharge - Discharge Clinical Impression: Sore throat, Nasal congestion Condition: Stable Disposition: HOME, SELF-CARE Instructions: Sore Throat ([facility]) Additional Instructions: Return immediately for any new or worsening symptoms Followup with your primary care provider, call tomorrow to make a followup appointment Use saline nasal spray to help with nasal congestion symptoms Prescriptions: Guaifenesin/Dextromethorphan [Mucinex Dm ER 1,200-60 mg Tab] 1 each PO Q12 PRN #12 tab.er.12h PRN Reason: congestion Forms: Return to Work Referrals: [facility] [Provider Group] - Follow up as needed
[2020-01-20 11:58] VITALS: BP 118/76
== END 2020-01-20 11:57 | disposition home or self-care (01) ==
LOC: ER 09:01
DX: J02.9 Acute pharyngitis, unspecified (principal); R09.81 Nasal congestion; R05 Cough; J34.89 Other specified disorders of nose and nasal sinuses; R51.9 Headache, unspecified
CPT/HCPCS: 99283; 87070; 87880; J3490